=== PATIENT | male | born 1980 | race Caucasian/White ===

== ENCOUNTER 2017-06-04 15:37 | Emergency (ER) | payer OTHER ==
[~2017-06-04] VITALS: Ht 203.2 cm; Wt 109.1 kg
[2017-06-04 15:46] VITALS: BP 110/74
[2017-06-04] MEDS ORDERED: IBUPROFEN 200 MG TABLET ONE (16:06)
[2017-06-04] MEDS ORDERED: IBUPROFEN 200 MG TABLET PO ONE (16:30)
== END 2017-06-04 18:52 | disposition home or self-care (01) ==
LOC: ED 18:40
DX: S92.325A Nondisplaced fracture of second metatarsal bone, left foot, initial encounter for closed fracture (principal); S92.335A Nondisplaced fracture of third metatarsal bone, left foot, initial encounter for closed fracture; X50.1XXA Overexertion from prolonged static or awkward postures, initial encounter; Y93.01 Activity, walking, marching and hiking; Y92.89 Other specified places as the place of occurrence of the external cause; Y99.8 Other external cause status
CPT/HCPCS: 99284